=== PATIENT | female | born 1945 | race Caucasian/White ===

== ENCOUNTER 2020-09-09 07:53 | Outpatient (CLI) | payer MEDICARE, OTHER ==
[2020-09-09 15:20] LABS: BASOPHILS # (AUTO) 0.1 10^3/uL (0.0-0.1); EOSINOPHILS # (AUTO) 0.2 10^3/uL (0.0-0.7); EOSINOPHILS % (AUTO) 2.9 %; HGB - HEMOGLOBIN 14.4 g/dL (12.0-16.0); LYMPHOCYTES # (AUTO) 1.6 10^3/uL (1.5-3.5); LYMPHOCYTES % (AUTO) 28.1 %; MEAN CORPUSCULAR HEMOGLOBIN 31.4 pg (27.0-31.0); MEAN CORPUSCULAR HGB CONC 32.3 g/dL (32.0-36.0); MEAN CORPUSCULAR VOLUME 97.4 fL (81.0-99.0); MONOCYTES # (AUTO) 0.6 10^3/uL (0.0-1.0); MONOCYTES % (AUTO) 10.8 %; NEUTROPHILS # (AUTO) 3.3 10^3/uL (1.5-6.6); PLT - PLATELET COUNT 254 10^3/uL (130-450); RED BLOOD COUNT 4.58 10^6/uL (4.20-5.40); RED CELL DISTRIBUTION WIDTH 13.1 % (12.0-15.0); WHITE BLOOD COUNT 5.8 x10^3/uL (4.8-10.8)
[2020-09-09 15:27] LABS: ALBUMIN 4.2 g/dL (3.2-5.5); ALBUMIN/GLOBULIN RATIO 1.1 (1.0-2.2); ALKALINE PHOSPHATASE 104 IU/L (42-121); ALT ALANINE AMINOTRANSFERASE 12 IU/L (10-60); AST ASPARTATE AMINOTRANSFERASE 21 IU/L (10-42); BILIRUBIN,TOTAL 1.1 mg/dL (0.2-1.0); BUN - BLOOD UREA NITROGEN 12 mg/dL (6-20); CALCIUM 9.8 mg/dL (8.5-10.3); CARBON DIOXIDE - CO2 26 mmol/L (21-32); CHLORIDE 98 mmol/L (101-111); CHOL/HDL RATIO 3.9 (<4.4); CHOLESTEROL 304 mg/dL; CREATININE 0.7 mg/dL (0.4-1.0); GLUCOSE 99 mg/dL (70-100); HDL CHOLESTEROL 78 mg/dL; LDL CHOLESTEROL,CALCULATED 206 mg/dL; LDL/HDL RATIO 2.6 (<4.4); SODIUM 134 mmol/L (135-145); TOTAL PROTEIN 8.2 g/dL (6.7-8.2); VLDL CHOLESTEROL 20 mg/dL
== END 2020-09-09 07:54 | disposition home or self-care (01) ==
LOC: LAB.S 07:53
PROVIDERS: ATTEND Registered Nurse
DX: F41.9 Anxiety disorder, unspecified (principal); I10 Essential (primary) hypertension; Z72.0 Tobacco use
CPT/HCPCS: 36415; 80053; 80061; 83721; 84443; 85025

== ENCOUNTER 2023-11-06 07:05 | Outpatient (CLI) | payer MEDICARE, OTHER ==
[2023-11-06 15:08] LABS: BASOPHILS # (AUTO) 0.1 10^3/uL (0.0-0.1); BASOPHILS % (AUTO) 1.1 %; EOSINOPHILS # (AUTO) 0.3 10^3/uL (0.0-0.7); EOSINOPHILS % (AUTO) 5.9 %; HCT - HEMATOCRIT 42.5 % (37.0-47.0); HGB - HEMOGLOBIN 14.2 g/dL (12.0-16.0); LYMPHOCYTES # (AUTO) 1.8 10^3/uL (1.5-3.5); LYMPHOCYTES % (AUTO) 32.2 %; MEAN CORPUSCULAR HEMOGLOBIN 32.6 pg (27.0-31.0); MEAN CORPUSCULAR HGB CONC 33.4 g/dL (32.0-36.0); MEAN CORPUSCULAR VOLUME 97.5 fL (81.0-99.0); MEAN PLATELET VOLUME 12.1 fL (7.9-10.8); MONOCYTES # (AUTO) 0.5 10^3/uL (0.0-1.0); MONOCYTES % (AUTO) 9.3 %; NEUTROPHILS # (AUTO) 2.8 10^3/uL (1.5-6.6); NEUTROPHILS % (AUTO) 51.3 %; PLT - PLATELET COUNT 230 10^3/uL (130-450); RED BLOOD COUNT 4.36 10^6/uL (4.20-5.40); RED CELL DISTRIBUTION WIDTH 12.9 % (12.0-15.0); WHITE BLOOD COUNT 5.5 x10^3/uL (4.8-10.8)
[2023-11-06 17:08] LABS: ALBUMIN 4.1 g/dL (3.2-5.5); ALBUMIN/GLOBULIN RATIO 1.3 (1.0-2.2); ALKALINE PHOSPHATASE 100 IU/L (42-121); ALT ALANINE AMINOTRANSFERASE 10 IU/L (10-60); AST ASPARTATE AMINOTRANSFERASE 16 IU/L (10-42); BILIRUBIN,TOTAL 1.3 mg/dL (0.2-1.0); BUN - BLOOD UREA NITROGEN 11 mg/dL (6-20); CALCIUM 9.6 mg/dL (8.5-10.3); CARBON DIOXIDE - CO2 27 mmol/L (21-32); CHLORIDE 100 mmol/L (101-111); CHOL/HDL RATIO 3.7 (<4.4); CHOLESTEROL 243 mg/dL; CREATININE 0.6 mg/dL (0.6-1.3); GFR - MDRD 97 (>89); GLUCOSE 96 mg/dL (74-104); HDL CHOLESTEROL 66 mg/dL; LDL CHOLESTEROL,CALCULATED 150 mg/dL; LDL/HDL RATIO 2.3 (<4.4); POTASSIUM 3.8 mmol/L (3.5-4.5); SODIUM 133 mmol/L (135-145); TOTAL PROTEIN 7.2 g/dL (6.4-8.9); TRIGLYCERIDES 136 mg/dL (48-352); VLDL CHOLESTEROL 27 mg/dL
[2023-11-06 17:20] LABS: THYROID STIMULATING HORMONE 2.52 uIU/mL (0.34-5.60)
== END 2023-11-06 07:06 | disposition home or self-care (01) ==
LOC: LAB.S 07:05
PROVIDERS: ATTEND Registered Nurse
DX: I10 Essential (primary) hypertension (principal); Z13.228 Encounter for screening for other metabolic disorders; Z13.220 Encounter for screening for lipoid disorders; Z13.29 Encounter for screening for other suspected endocrine disorder; Z13.0 Encounter for screening for diseases of the blood and blood-forming organs and certain disorders involving the immune mechanism
CPT/HCPCS: 36415; 80053; 80061; 83721; 84443; 85025

== ENCOUNTER 2024-04-26 09:50 | Outpatient (CLI) | payer MEDICARE, OTHER ==
[2024-04-26 14:51] LABS: BASOPHILS # (AUTO) 0.1 10^3/uL (0.0-0.1); EOSINOPHILS # (AUTO) 0.1 10^3/uL (0.0-0.7); EOSINOPHILS % (AUTO) 1.5 %; HCT - HEMATOCRIT 39.7 % (37.0-47.0); HGB - HEMOGLOBIN 13.5 g/dL (12.0-16.0); LYMPHOCYTES % (AUTO) 19.2 %; MEAN CORPUSCULAR VOLUME 94.1 fL (81.0-99.0); MONOCYTES # (AUTO) 0.5 10^3/uL (0.0-1.0); MONOCYTES % (AUTO) 9.2 %; NEUTROPHILS # (AUTO) 3.6 10^3/uL (1.5-6.6); NEUTROPHILS % (AUTO) 68.9 %; PLT - PLATELET COUNT 249 10^3/uL (130-450); RED BLOOD COUNT 4.22 10^6/uL (4.20-5.40); RED CELL DISTRIBUTION WIDTH 12.5 % (12.0-15.0); WHITE BLOOD COUNT 5.2 x10^3/uL (4.8-10.8)
[2024-04-26 15:31] LABS: ALBUMIN 4.3 g/dL (3.2-5.5); ALBUMIN/GLOBULIN RATIO 1.4 (1.0-2.2); BILIRUBIN,TOTAL 1.4 mg/dL (0.2-1.0); CALCIUM 10.6 mg/dL (8.5-10.3); CREATININE 0.6 mg/dL (0.6-1.3); MAGNESIUM 1.3 mg/dL (1.7-2.3); PHOSPHORUS 3.3 mg/dL (2.5-5.0); POTASSIUM 3.2 mmol/L (3.5-4.5); TOTAL PROTEIN 7.4 g/dL (6.4-8.9)
[2024-04-26 16:18] LABS: THYROID STIMULATING HORMONE 2.39 uIU/mL (0.34-5.60)
== END 2024-04-26 09:51 | disposition home or self-care (01) ==
LOC: LAB.S 09:50
PROVIDERS: ATTEND Registered Nurse
DX: R41.0 Disorientation, unspecified (principal); R29.6 Repeated falls
CPT/HCPCS: 36415; 80053; 81599; 82607; 83735; 84100; 84425; 84443; 85025

== ENCOUNTER 2024-05-16 09:07 | Outpatient (CLI) | payer MEDICARE, OTHER ==
[2024-05-16] MEDS ORDERED: iohexoL-300 100 ML VIAL ONE (09:13)
[2024-05-16] MEDS ORDERED: DIATRIZOATE MEGLU/DIATRIZO SOD 30 ML BOTTLE PO ONE (09:13)
[2024-05-16] MEDS: iohexoL-300 100 ML VIAL IVP ONE (11:45)
[2024-05-16] MEDS: DIATRIZOATE MEGLU/DIATRIZO SOD 30 ML BOTTLE PO ONE (11:46)
--- NOTE | 2024-05-16 11:55 | CT Report ---
PROCEDURE: Chest W INDICATIONS: UNINTENTIONAL WEIGHT LOSS TECHNIQUE: After the administration of intravenous contrast, a CT scan of the chest was performed. Images were recorded and evaluated at appropriate window settings. Reformats: axial MIP of the chest, coronal and sagittal. For radiation dose reduction, the following was used: automated exposure control, adjustme nt of mA and/or kV according to patient size. COMPARISON: None. FINDINGS: Lungs:1.1 cm pulmonary nodule in the superior segment of the right lower lobe, partial calcification. No pleural effusion, pneumothorax, pulmonary edema or focal consolidation. Soft tissue/mediastinum/heart: Multiple subcentimeter thyroid nodules, no follow-up imaging is recomm ended.Heart is normal in size. No pericardial effusion.Mild RCA coronary artery calcification. Mild a therosclerotic calcification of the thoracic aorta. No saddle pulmonary embolism. No thoracic aortic aneurysm. No mediastinal, hilar, or axillary lymphadenopathy. Visualized portion of the upper abdomen:Please see separate report. Bones: Multiple chronic left posterior and posterolateral rib fracture. Severe degenerative changes o f bilateral glenohumeral joint. Mild anterior compression fracture of T12, favoring chronic. IMPRESSION: 1.1.1 cm partially calcified pulmonary nodule in the right lower lobe. Recommend further evaluation w ith PET/CT or [address] chest follow-up. Reviewed by: Sheela Hollis MD on 05/16/2024 11:53 AM PDT Approved by: Sheela Hollis MD on 05/16/2024 11:53 AM PDT Station ID: [id number]
--- NOTE | 2024-05-16 12:03 | CT Report ---
PROCEDURE: Abdomen/Pelvis W INDICATIONS: UNINTENTIONAL WEIGHT LOSS CONTRAST: Omni 300 100ml TECHNIQUE: After the administration of intravenous contrast, a CT scan of the abdomen and pelvis was performed. Images were recorded and evaluated at appropriate window settings. Reformats: coronal and sagittal. F or radiation dose reduction, the following was used: automated exposure control, adjustment of mA and /or kV according to patient size. COMPARISON: None. FINDINGS: Lower Chest: Please see separate report. Liver: Within normal limits. Gallbladder: unremarkable Pancreas: Within normal limits. Spleen: Within normal limits. Adrenal Glands: Within normal limits. Right kidney: No hydronephrosis or renal stone. Left kidney: Small nonobstructive left renal stone. No left hydronephrosis. The bladder and reproductive organs are obscured by streak artifact. GI Tract: The sigmoid colon is obscured by streak artifact. Large stool burden. Appendix is nonvisual ized. Wall thickening of the gastric antrum, concerning for gastritis. No bowel obstruction. Aorta: Moderate atherosclerotic calcification of the abdominal aorta and its side branches. No abdomi nal aortic aneurysm. Peritoneum/Retroperitoneum: No ascites. No abdominal or pelvic lymphadenopathy. Abdominal/Pelvic Wall: Mild generalized body anasarca. Bones: Bilateral total hip arthroplasty, creating artifacts and limits evaluation of the pelvis. Balaji drocalcinosis of the pubic symphysis, representing CPPD arthropathy. Mild levoscoliosis of the lumbar spine. Multilevel, severe degenerative disc disease of the lumbar spine. Mild anterior compression d eformity of T12, favoring chronic. IMPRESSION: 1.Findings suggestive of gastritis at the gastric antrum. 2.Large stool burden. 3.Additional chronic findings described above. Reviewed by: Sheela Hollis MD on 05/16/2024 12:01 PM PDT Approved by: Sheela Hollis MD on 05/16/2024 12:01 PM PDT Station ID: [id number]
== END 2024-05-16 09:08 | disposition home or self-care (01) ==
LOC: DI 09:07
PROVIDERS: ATTEND Registered Nurse
DX: R91.1 Solitary pulmonary nodule (principal); K59.09 Other constipation; N20.0 Calculus of kidney; I70.0 Atherosclerosis of aorta; M51.36 Other intervertebral disc degeneration, lumbar region; M41.9 Scoliosis, unspecified
CPT/HCPCS: 71260; 74177; Q9963; Q9967